=== PATIENT | female | born 2000 | race Caucasian/White ===

== ENCOUNTER 2021-04-09 12:25 | Observation (INO) | payer MEDICAID, SELFPAY ==
[~2021-04-09] VITALS: Ht 167.6 cm; Wt 79.4 kg
[2021-04-09 12:55] VITALS: BP 116/55
== END 2021-04-09 13:30 | disposition home or self-care (01) ==
LOC: MLD 12:25
PROVIDERS: ADMIT Obstetrics & Gynecology; ATTEND Obstetrics & Gynecology
DX: O21.2 Late vomiting of pregnancy (principal); Z20.822 Contact with and (suspected) exposure to COVID-19; O26.812 Pregnancy related exhaustion and fatigue, second trimester; O26.892 Other specified pregnancy related conditions, second trimester; R10.13 Epigastric pain; R53.1 Weakness; R68.83 Chills (without fever); R51.9 Headache, unspecified; Z3A.25 25 weeks gestation of pregnancy
CPT/HCPCS: 59025; 81000; G0378

== ENCOUNTER 2021-06-27 23:25 | Observation (INO) | payer SELFPAY ==
[~2021-06-27] VITALS: Ht 167.6 cm; Wt 83.9 kg
[2021-06-27] MEDS ORDERED: MORPHINE SULFATE 4 MG/ML SYR IM SCH (23:55)
[2021-06-27] MEDS ORDERED: MORPHINE SULFATE 4 MG/ML SYR ONE (23:59)
[2021-06-28 00:23] VITALS: BP 131/71
[2021-06-28] MEDS ORDERED: PNV91TAB8 PO (00:27)
== END 2021-06-28 00:45 | disposition home or self-care (01) ==
LOC: MLD 23:25
PROVIDERS: ADMIT Obstetrics & Gynecology; ATTEND Obstetrics & Gynecology
DX: O26.893 Other specified pregnancy related conditions, third trimester (principal); R10.30 Lower abdominal pain, unspecified; Z3A.35 35 weeks gestation of pregnancy
CPT/HCPCS: 59025; 81000; 96372; G0378; G0379; J2270